=== PATIENT | female | born 1995 | race African-American/Black ===

== ENCOUNTER 2023-08-23 16:37 | Emergency (ER) | payer OTHER ==
[~2023-08-23] VITALS: Ht 157.5 cm; Wt 75.3 kg
[2023-08-23 16:39] VITALS: BP 111/76; PULSE 72; RESP 16; TEMP 98; O2SAT 99
[2023-08-23 16:52] VITALS: TEMP 98; O2SAT 99
[2023-08-23] MEDS: ACETAMINOPHEN EXTRA STRENGTH 500 MG TAB PO ONE (17:38)
[2023-08-23 19:21] VITALS: BP 121/48; PULSE 85; RESP 18; O2SAT 99
[2023-08-23] MEDS ORDERED: CAPS1ADH5 TP (20:01)
[2023-08-23] MEDS ORDERED: ACET-10509 PO (20:01)
[2023-08-23] MEDS ORDERED: DICL100G32 TP (20:01)
[2023-08-23] MEDS ORDERED: NEOMYCIN/POLYMYXIN/BACITRACIN 0.9 GM/1 PKT TP ONE (21:09)
== END 2023-08-23 21:23 | disposition home or self-care (01) ==
LOC: MED 16:37
DX: O9A.211 Injury, poisoning and certain other consequences of external causes complicating pregnancy, first trimester (principal); S80.212A Abrasion, left knee, initial encounter; M79.645 Pain in left finger(s); M25.561 Pain in right knee; Z3A.01 Less than 8 weeks gestation of pregnancy; V49.88XA Car occupant (driver) (passenger) injured in other specified transport accidents, initial encounter; Y93.89 Activity, other specified; Y92.89 Other specified places as the place of occurrence of the external cause; Y99.8 Other external cause status
CPT/HCPCS: 73140; 73564; 81025; 99284